=== PATIENT | female | born 1950 | race Caucasian/White ===

== ENCOUNTER 2020-03-09 10:28 | Inpatient (IN) | payer MEDICARE, OTHER ==
[~2020-03-09] VITALS: Ht 157.5 cm; Wt 53.5 kg
[2020-03-09 11:16] LABS: CLARITY,URINE CLOUDY (Clear); COLOR,URINE YELLOW (Yellow); GLUCOSE, URINE NEGATIVE (Neg); KETONES,URINE NEGATIVE (Neg); LEUKOCYTE ESTERASE ,URINE TRACE (Neg); NITRITES, URINE NEGATIVE (Neg); OCCULT BLOOD,URINE LARGE (Neg); PROTEIN,URINE 30 mg/dl (Neg); UROBILINOGEN,URINE 0.2 E.U/dL (0.2-1.0)
[2020-03-09 11:17] LABS: UA COLLECTION TYPE CLN CATCH MIDSTREAM
[2020-03-09 11:30] LABS: MUCUS STRANDS MODERATE /LPF (Neg); SQUAMOUS EPITHELIAL CELL,UR FEW /LPF (FEW)
[2020-03-09 11:31] LABS: BACTERIA,URINE FEW /HPF (Neg); RBC,URINE TNTC /HPF (0-2)
[2020-03-09] MEDS ORDERED: ondansetron/PF 4mg/2ml inj IV ONE (12:20)
[2020-03-09] MEDS ORDERED: pantoprazole 40 MG vial IV ONE (12:20)
[2020-03-09] MEDS ORDERED: normal saline 1000ML IV soln IVB ONE (12:20)
[2020-03-09 12:42] LABS: BASOPHILS # (AUTO) 0.1 X10'3 (0-0.2); BASOPHILS % (AUTO) 0.4 % (0-1); EOSINOPHILS % (AUTO) 0.1 % (0-6); HEMATOCRIT 38.9 % (35.0-45.0); LYMPHOCYTES % (AUTO) 7.4 % (21-51); MEAN CORPUSCULAR HEMOGLOBIN 31.6 PG (27.0-31.0); MEAN CORPUSCULAR HGB CONC 33.3 g/dL (33.0-36.5); MEAN PLATELET VOLUME 8.3 FL (7.4-10.4); MONOCYTES % (AUTO) 7.8 % (2-12); NEUTROPHILS % (AUTO) 84.3 % (42-75); PLATELET COUNT 259 X10'3 (140-440); RED CELL DISTRIBUTION WIDTH 14.1 % (11.5-14.5)
[2020-03-09 12:55] LABS: PARTIAL THROMBOPLASTIN TIME 26 SECONDS (22-32)
[2020-03-09 12:59] LABS: ALANINE AMINOTRANSFERASE 23 U/L (12-78); ALBUMIN 3.7 G/DL (3.4-5.0); ALBUMIN/GLOBULIN RATIO 1.3 (1.1-1.5); ALKALINE PHOSPHATASE 63 IU/L (46-116); ANION GAP 11 (8-16); ASPARTATE AMINO TRANSFERASE 20 U/L (10-37); BLOOD UREA NITROGEN 15 MG/DL (7-18); BUN/CREATININE RATIO 13.8 (6.6-38.0); CHLORIDE 107 MMOL/L (99-107); CREATININE 1.09 MG/DL (0.40-0.90); GLUCOSE 104 MG/DL (70-104); LIPASE 212 U/L (73-393); POTASSIUM 3.6 MMOL/L (3.5-5.1); SODIUM 142 MMOL/L (135-145); TOTAL CARBON DIOXIDE 23.6 MMOL/L (24-32); TOTAL PROTEIN 6.6 G/DL (6.4-8.2); eGFR 50 ML/MIN
[2020-03-09] MEDS ORDERED: morphine 4 MG/ML inj SYRINge IV ONE (13:20)
[2020-03-09] MEDS ORDERED: tamsulosin 0.4mg capsule PO ONE (13:20)
[2020-03-09] MEDS ORDERED: morphine 2 MG/ML inj. syringe IV PRN (13:55)
[2020-03-09] MEDS ORDERED: mag hydrox/Alum hydrox/simeth 30ml oral suspension PO PRN (13:55)
[2020-03-09] MEDS ORDERED: ondansetron/PF 4mg/2ml inj IV PRN (13:55)
[2020-03-09] MEDS ORDERED: acetaminophen 325mg tablet PO PRN (13:55)
[2020-03-09] MEDS ORDERED: magnesium hydroxide 30ml (MOM) UD suspension PO PRN (13:55)
[2020-03-09] MEDS: normal saline 1000ml 1,000 ML IV SCH ×2 (14:03→16:06)
[2020-03-09] MEDS ORDERED: GABA300C PO (14:05)
[2020-03-09] MEDS ORDERED: ZOLP10TA PO (14:05)
[2020-03-09] MEDS ORDERED: VENL37.589 PO (14:05)
[2020-03-09] MEDS ORDERED: CITA40TA11 PO (14:05)
--- NOTE | 2020-03-09 14:18 | NUR ---
DR. LUNA IN TO ADMIT PT
[2020-03-09 14:25] LABS: CLARITY,URINE CLEAR (Clear); COLOR,URINE STRAW (Yellow); GLUCOSE, URINE NEGATIVE (Neg); KETONES,URINE TRACE mg/dl (Neg); LEUKOCYTE ESTERASE ,URINE NEGATIVE (Neg); NITRITES, URINE NEGATIVE (Neg); OCCULT BLOOD,URINE LARGE (Neg); PROTEIN,URINE NEGATIVE (Neg); UROBILINOGEN,URINE 0.2 E.U/dL (0.2-1.0)
[2020-03-09 14:27] LABS: UA COLLECTION TYPE CLN CATCH MIDSTREAM
[2020-03-09 14:31] LABS: MUCUS STRANDS FEW /LPF (Neg); SQUAMOUS EPITHELIAL CELL,UR FEW /LPF (FEW); TRANSITIONAL EPI CELLS,URINE FEW /HPF
[2020-03-09 14:33] LABS: BACTERIA,URINE NONE SEEN /HPF (Neg); WBC,URINE 0-4 /HPF (0-4)
[2020-03-09] MEDS: CefTRIAXone 2gm/D5W 50ml 50 ML IV SCH (16:03)
[2020-03-09] MEDS ORDERED: zolpidem 5mg tablet PO PRN (17:05)
--- NOTE | 2020-03-09 17:23 | NUR ---
Patient in room ED 6. I have received report from Olga in the ED and had the opportunity to ask questions and assume patient care.
--- NOTE | 2020-03-09 17:30 | NUR ---
Pt arrived, tucked in, gave ice chips, started fluids, placed in gown. Pt is alert, oriented and very pleasant.
[2020-03-09 17:45] VITALS: BP 103/52
[2020-03-09] MEDS: morphine 2 MG/ML inj. syringe IV PRN ×2 (17:57→21:53)
[2020-03-09 18:00] VITALS: BP 110/56
--- NOTE | 2020-03-09 18:17 | NUR ---
Problems reprioritized. Patient report given, questions answered & plan of care reviewed with Lesvia.
[2020-03-09] MEDS: gabapentin 300mg capsule PO SCH (21:24)
[2020-03-09 22:00] VITALS: BP 109/43
[2020-03-10] VITALS (11 sets, daily range): BP systolic 112–137; BP diastolic 51–104
[2020-03-10] MEDS: normal saline 1000ml 1,000 ML IV SCH (01:33)
[2020-03-10 02:02] LABS: BASOPHILS % (AUTO) 0.5 % (0-1); EOSINOPHILS # (AUTO) 0.1 X10'3 (0-0.9); HEMATOCRIT 31.3 % (35.0-45.0); HEMOGLOBIN 10.5 g/dl (12.0-16.0); LYMPHOCYTES # (AUTO) 1.5 X10'3 (1.1-4.8); LYMPHOCYTES % (AUTO) 17.8 % (21-51); MEAN CORPUSCULAR HEMOGLOBIN 32.4 PG (27.0-31.0); MEAN CORPUSCULAR HGB CONC 33.6 g/dL (33.0-36.5); MEAN CORPUSCULAR VOLUME 96.4 FL (78-98); MEAN PLATELET VOLUME 8.4 FL (7.4-10.4); MONOCYTES # (AUTO) 0.8 X10'3 (0-0.9); MONOCYTES % (AUTO) 9.7 % (2-12); PLATELET COUNT 197 X10'3 (140-440); RED BLOOD COUNT 3.25 X10'6 (4.20-5.60); WHITE BLOOD COUNT 8.4 X10'3 (4.5-11.0)
[2020-03-10 02:12] LABS: ANION GAP 5 (8-16); BLOOD UREA NITROGEN 11 MG/DL (7-18); BUN/CREATININE RATIO 13.9 (6.6-38.0); CALCIUM 8.2 MG/DL (8.5-10.1); CHLORIDE 112 MMOL/L (99-107); CREATININE 0.79 MG/DL (0.40-0.90); GLUCOSE 95 MG/DL (70-104); POTASSIUM 3.4 MMOL/L (3.5-5.1); SODIUM 142 MMOL/L (135-145); TOTAL CARBON DIOXIDE 25.4 MMOL/L (24-32); eGFR 72 ML/MIN
[2020-03-10] MEDS: morphine 2 MG/ML inj. syringe IV PRN ×2 (04:10→07:48)
[2020-03-10] MEDS ORDERED: famotidine/PF 10 mg/ml inj IV PRN (07:50)
[2020-03-10] MEDS: gabapentin 300mg capsule PO SCH (08:00)
[2020-03-10] MEDS ORDERED: citalopram 20mg tablet PO SCH (08:00)
[2020-03-10] MEDS ORDERED: venlafaxine XR 37.5mg cap (Q24H) PO SCH (08:00)
[2020-03-10] MEDS: CefTRIAXone 2gm/D5W 50ml 50 ML IV SCH (08:01)
[2020-03-10] MEDS ORDERED: ringers solution, lacted 1,000 ML IV SCH (10:09)
[2020-03-10] MEDS ORDERED: hydrALAZINE 20mg/ml inj. IV PRN (10:10)
[2020-03-10] MEDS ORDERED: morphine 4 MG/ML inj SYRINge IV PRN (10:10)
[2020-03-10] MEDS ORDERED: morphine 2 MG/ML inj. syringe IV PRN (10:10)
[2020-03-10] MEDS ORDERED: ondansetron/PF 4mg/2ml inj IV PRN (10:10)
[2020-03-10] MEDS ORDERED: fentaNYL/PF 50MCG/1 ML 2ML syringe IV PRN ×2 (10:10)
[2020-03-10] MEDS ORDERED: labetalol 20mg/4ml (5mg/ml) syringe IV PRN (10:10)
[2020-03-10] MEDS ORDERED: iohexol 300 MG/1 ML 50ml polymer ONE (10:59)
[2020-03-10] MEDS ORDERED: fentaNYL/PF 50MCG/1 ML 2ML syringe ONE (11:19)
[2020-03-10] MEDS ORDERED: ePHEDrine 50MG/ML INJ. ONE (11:30)
[2020-03-10] MEDS ORDERED: sevoflurane 250ml liquid IH ONE (11:30)
[2020-03-10] MEDS ORDERED: phenylephrine 10mg/ml inj. ONE (11:30)
[2020-03-10] MEDS ORDERED: midazolam 2 mg/2 ml injection ONE (11:52)
[2020-03-10] MEDS ORDERED: sugammadex 200mg/2ml injection IV ONE (12:00)
--- NOTE | 2020-03-10 12:23 | NUR ---
Received from OR via ORTHO BED WITH MSANGELICA , accompanied by Anesthesiologist VERONIKA and report given by Anesthesiolgist. PATIENT WITH 20G PIV IN RIGHT UE. DENIES PAIN VSS. Addendum: 03/10/20 at 1224 by Kike Cantu RN, RN Amended: Links added.
--- NOTE | 2020-03-10 12:58 | NUR ---
ALL CRITERIA FOR DC TO THE FLOOR HAS BEEN ACHIEVED. 2 RAILS UP. BED LOW, CALL LIGHT PRESENT. GAVE REPORT TO LEI CASTILLO . PAIN AT A TOLERABLE LEVEL AT THIS TIME. DRESSINGS CDI. CARE TURNED OVER TO RN. Addendum: 03/10/20 at 1300 by Kike Black - LEI RN Amended: Links added.
[2020-03-10] MEDS ORDERED: dexamethasone sod phosphate 4mg/ml inj. ONE (13:43)
[2020-03-10] MEDS ORDERED: ondansetron/PF 4mg/2ml inj ONE (13:43)
[2020-03-10] MEDS ORDERED: rocuronium 10mg/ml inj IV ONE (13:43)
[2020-03-10] MEDS ORDERED: propofol inj 20 ML IV ONE (13:43)
[2020-03-10] MEDS ORDERED: LIDOcaine 2% (20mg/ml) 5ml vial ONE (13:43)
[2020-03-10] MEDS ORDERED: CEPH250T PO (16:24)
[2020-03-10] MEDS ORDERED: lactobacillus rhamnosus 10,000 MMU CELLS/CAPSULE PO SCH (20:00)
[2020-03-10] MEDS ORDERED: gabapentin 300mg capsule PO SCH (20:00)
--- NOTE | 2020-03-11 16:03 | NUR ---
Case Management DC follow up: spoke to pt via telephone. S/P: L uretal stone, L side hydronephrosis Reports:"feeling ok, a little pain and swelling, but doing good ". Denies: acute cp, SOB, resp distress, vertigo, syncope,weakness, blurry vision, N/V, [place], emergent general pain, abd tenderness/distension, bladder tenderness & distention, fever. Verbalizes understanding of s/s that warrant 9-11/ER visit for evaluation. Verbalizes understanding of new Rx/Keflex and why prescribed, resumes current Rx/taking as ordered, no ase r/t polypharmacy. Acknowledges need to schedule/keep follow up appts w/ PCP/Rory Magana. Pt verbalizes will contact to schedule follow ups Saturday03/14/20. Needs met, questions answered at DC, no further questions at this time.
== END 2020-03-10 17:14 | disposition home or self-care (01) | DRG 661 ==
LOC: ER 10:29 → ED HOLD 13:54 → ORTHO 4S 17:45
PROVIDERS: ADMIT Family Medicine; ATTEND Internal Medicine
PROC: 0T778DZ Dilation of Left Ureter with Intraluminal Device, Via Natural or Artificial Opening Endoscopic (ICD-10-PCS; 2020-03-10)
PROC: BT1F1ZZ Fluoroscopy of Left Kidney, Ureter and Bladder using Low Osmolar Contrast (ICD-10-PCS; 2020-03-10)
PROC: 0TF78ZZ Fragmentation in Left Ureter, Via Natural or Artificial Opening Endoscopic (ICD-10-PCS; principal; 2020-03-10 11:30)
DX: N13.2 Hydronephrosis with renal and ureteral calculous obstruction (principal); F41.8 Other specified anxiety disorders; N36.8 Other specified disorders of urethra; G62.9 Polyneuropathy, unspecified; Z79.899 Other long term (current) drug therapy
CPT/HCPCS: 36415; 71045; 74176; 76000; 80048; 80053; 81001; 83690; 84484; 85025; 85610; 85730; 87081; 87088; 93005; 96374; 96375; 99285; A4618; A7000; C1758; C1769; C2617; C9113; C9399; G0378; J0696; J1100; J2001; J2250; J2270; J2370; J2405; J2704; J3010; J3490; J7030; Q9967